=== PATIENT | female | born 1980 | race Caucasian/White ===

== ENCOUNTER 2025-08-16 12:34 | Outpatient (REF) | payer OTHER, BC, SELFPAY | END 2025-08-16 12:35 | disposition home or self-care (01) | LOC: HO.HPHYSR 12:34 | PROVIDERS: Visit Provider Physical Medicine & Rehabilitation | DX: M46.1 Sacroiliitis, not elsewhere classified (principal); M53.3 Sacrococcygeal disorders, not elsewhere classified | CPT/HCPCS: 27096; J2003; J3301; Q9967 ==

== ENCOUNTER 2025-08-16 12:34 | Outpatient (AMB) | payer OTHER, BC, SELFPAY ==
--- OUTSIDE RECORDS SUMMARY | 2025-04-03 05:04 | XMS_ITS ---
Author Organization [facility] Address [address] [place], [place] [id number] Care Team Providers Care Special Educator Name Role Phone DEBORAH TALBERT Primary Care Provider [phone] REASON FOR VISIT Migraines Encounters Encounter Location Date Provider Diagnosis [facility] [address] [place] [phone] 04/03/2025 DEBORAH TALBERT PLAN OF TREATMENT Next Appt Details Provider Name:DEBORAH Chavez, 07/24/2026 01:30:00 PM, [address] [place], [address],
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
--- OUTSIDE RECORDS SUMMARY | 2025-04-15 06:31 | XMS_ITS ---
Author Organization [facility] Address [address] [place], [place] [id number] Care Team Providers Care Forging Machine Hand Name Role Phone DEBORAH TALBERT Primary Care Provider REASON FOR VISIT Gabapentin f/u MEDICATIONS Medication SIG (Take, Route, Fr equency, Duration) Notes Start Date End Date Status Gabapentin 300 MG 2 Orally qhs prn for 30 day(s) 0 04/04/2025 Active Encounters Encounter Location Date Provider Diagnosis [facility] [address] [place] [phone] 04/15/2025 DEBORAH TLABERT Cervical radiculopat hy M54.12 ASSESSMENTS Encounter Date Diagnosis Assessment Notes Treatment Notes Treatment Clinical Notes Section Notes 04/15/2025 Cervical radiculopathy (ICD-10 - M54.12) PLAN OF TREATMENT Medication Medication Name Sig Start Date Stop Date Notes Gabapentin 300 MG 2 Orally qhs prn for 30 day(s) Next Appt Details Provider Name:DEBORAH Chavez, 07/24/2026 01:30:00 PM, [address] [place], [address],
--- OUTSIDE RECORDS SUMMARY | 2025-04-15 08:25 | XMS_ITS ---
Author Organization [facility] Address [address] [place], [place] [id number] Care Team Providers Care Ballet Dancer Name Role Phone DEBORAH TALBERT Primary Care Provider REASON FOR VISIT RE:Gabapentin f/u Encounters Encounter Location Date Provider Diagnosis [address] [address] 04/15/2025 DEBORAH TALBERT PLAN OF TREATMENT Next Appt Details Provider Name:DEBORAH Chavez, 07/24/2026 01:30:00 PM, [address] [place], [address],
--- OUTSIDE RECORDS SUMMARY | 2025-05-22 09:52 | XMS_ITS ---
Author Organization [facility] Address [address] [place], [place] [id number] Care Team Providers Care Airport Guide Name Role Phone DEBORAH TALBERT Primary Care Provider [phone] REASON FOR VISIT MedRecReq/Legal Encounters Encounter Location Date Provider Diagnosis [address] [address] 05/22/2025 DEBORAH TALBERT PLAN OF TREATMENT Next Appt Details Provider Name:DEBORAH Chavez, 07/24/2026 01:30:00 PM, [address] [place], [address],
--- OUTSIDE RECORDS SUMMARY | 2025-07-01 09:28 | XMS_ITS ---
Author Organization [facility] Address [address] [place], [place] [id number] Care Team Providers Care Tester Compressed Gases Name Role Phone DEBORAH TALBERT Primary Care Provider [phone] REASON FOR VISIT (w)question for Dr. Baca Encounters Encounter Location Date Provider Diagnosis [address] [address] 07/01/2025 DEBORAH TALBERT PLAN OF TREATMENT Next Appt Details Provider Name:DEBORAH Chavez, 07/24/2026 01:30:00 PM, [address] [place], [address],
--- OUTSIDE RECORDS SUMMARY | 2025-07-03 08:30 | XMS_ITS ---
Author Organization [facility] Address [address] [place], [place] [phone] Care Team Providers Care Facing Slitter Name Role Phone DEBORAH TALBERT Primary Care Provider [phone] RESULTS Component Value Reference Range Notes Sleep Study (Home) Reviewed date:08/09/2025 12:22:01 PM Interpretation: Performing Lab: Notes/Report: REASON FOR VISIT CPX MEDICATIONS Medication SIG (Take, Route, Frequency, Duration) Notes Start Date End Date Status Gabapentin 300 MG 2 Orally qhs prn for 30 day(s) 04/04/2025 Active buPROPion HCl ER (XL) 150 MG TAKE 3 TABLETS BY MOUTH ONCE DAILY for 90 Active Multivitamin - 1 tablet Orally Once a day for 30 days Active Citalopram Hydrobromide 20 MG 1 tablet Orally Once a day Active EpiPen 2-Curry 0.3 MG/0.3ML as directed Injection Active valACYclovir HCl 1 GM 2 Orally bid for 1 day prn 09/25 Active SOCIAL HISTORY Tobacco Use: Social History Observation Description Date Details (start date - stop date) Never Smoker NA - NA Sex Assigned At : Social History Observation Description Sex Assigned At Unknown Smoking Question Answer Notes Are you a: never smoker Section Notes: never smoker PROBLEMS Problem Type ICD Code Onset Dates Problem Status W/U Status Risk SNOMED Code Notes Problem NAUN (obstructive sleep apnea) (G47.33) Active confirmed 47996298 VITAL SIGNS Height 65.5 in 07/03/2025 Weight 169 lbs 07/03/2025 Blood pressure systolic 118 mm Hg 07/03/20 25 Blood pressure diastolic 78 mm Hg 025 BMI 27.69 kg/m2 07/03/2025 Encounters Encounter Location Date Provider Diagnosis [facility] [address] [place] [address] 07/03/2025 DEBORAH TALBERT Encounter for amber l adult medical examination without abnormal findings Z00.00 and NAUN (obstructive sleep apnea) G47.33 ASSESSMENTS Encounter Date Diagnosis Assessment Notes Treatment Notes Treatment Clinical Notes Section Notes 07/03/2025 Encounter for general adult medical examination without abnormal findings (ICD-10 - Z00.00) colon UTD..she does not smoke..flu shot today..diet and exercise and wt loss..mammos UTD..colon UTD 07/03/2025 NAUN (obstructive sleep apnea) (ICD-10 - G47.33) will check a home sleep study PLAN OF TREATMENT Treatment Notes Assessment Notes Encounter for general adult medical examination without abnormal findings colon UTD..she does not smoke..flu shot today..diet and exercise and wt loss..mammos UTD..colon UTD NAUN (obstructive sleep apnea) will check a home sleep study Next Appt Details Follow Up: 1 Year 45 min cpx ...labs today...flu shot today, Reason: Provider Name:DEBORAH Chavez, 07/24/2026 01:30:00 PM, [address] [place] [address], [phone], Progress Notes * Examination Category Sub-Category Detail Notes Category Not es General Examination HEENT: EACs normal bilaterally, nose clear, oropharynx clear Neck: no mass, no carotid bruit Heart: RSR, normal S1S2, no murmurs, clicks or rubs Lungs: clear to auscultatio n, no wheezes Abdomen: soft, non tender/non distended, no masses palpated, no hepatosplenomegaly Extremities: no clubbing , cyanos is, or edema General Appearance no apparent distress , pleasant Skin: normal, no rash, miri ign appearing moles Neuro DTRs 1-2+ in all 4 e xtremities, CN 2-12 intact Peripheral pulses: 2+, bilaterally syme trical Lymphatics No supraclavicular n odes, no cervical adenopathy Psych: affect normal History and Physical Notes * HPI (History of Present Illness) Category Sub-Category Detail Notes Category Not es General here for cpx
--- OUTSIDE RECORDS SUMMARY | 2025-07-03 09:06 | XMS_ITS ---
Author Organization [facility] Address [address] [place], [place] [phone] Care Team Providers Care Accelerator Systems Director Name Role Phone DEBORAH TALBERT Primary Care Provider [phone] REASON FOR VISIT home sleep study Encounters Encounter Location Date Provider Diagnosis [address] [address] 07/03/2025 DEBORAH TALBERT PLAN OF TREATMENT Next Appt Details Provider Name:DEBORAH Chavez, 07/24/2026 01:30:00 PM, [address] [place], [address],
--- OUTSIDE RECORDS SUMMARY | 2025-07-03 09:15 | XMS_ITS ---
Author Organization [facility] Address [address] [place], [place] [phone] Care Team Providers Care Umbrella Tipper Hand Name Role Phone DEBORAH TALBERT Primary Care Provider [place], [facility] Unavailable [phone] REASON FOR VISIT 27/flu shot IMMUNIZATIONS Vaccine Route Administration Date Status Comme nts Influenza, Flublok IM Intramuscular 07/03/2025 Administere d Encounters Encounter Location Date Provider Diagnosis [address] [address] 07/03/2025 N[facility]SING [place] Encounter for immunization Z23 ASSESSMENTS Encounter Date Diagnosis Assessment Notes Treatment Notes Treatment Clinical Notes Section Notes 07/03/2025 Encounter for immunization (ICD-10 - Z23) Influenza vaccine administered. Patient counseled and VIS sheet given. PLAN OF TREATMENT Treatment Notes Assessment Notes Encounter for immunization Influenza vac cine administered. Patient counseled and VIS sheet given. Next Appt Details Provider Name:DEBORAH Chavez, 07/24/2026 01:30:00 PM, [address] [place] [address], [phone],
--- OUTSIDE RECORDS SUMMARY | 2025-07-03 09:15 | XMS_ITS ---
Author Organization [facility] Address [address] [place], [place] [id number] Care Team Providers Care Jacquard Card Cutter Name Role Phone DEBORAH TALBERT Primary Care Provider [phone] REASON FOR VISIT employment Encounters Encounter Location Date Provider Diagnosis [facility] [address] [place] [phone] 07/03/2025 DEBORAH TALBERT PLAN OF TREATMENT Next Appt Details Provider Name:DEBORAH Chavez, 07/24/2026 01:30:00 PM, [address] [place], [address],
--- NOTE | 2025-08-16 12:42 | A.PHYSOV ---
Vital Signs 08/16/25 12:44 Height 5 ft 7 in Weight 168 lb BMI 26.3 BP 135/85 Pulse 86 Temp 98.4 F Intake Visit Reasons: Right Sacroiliac Joint Injection Intake Note: Patient is a 45 year old female in office today for a right sacroiliac joint injection. Allergies No Known Allergies Allergy (Verified 08/14/25 15:06) PFSH Medical History (Updated 08/16/25 @ 12:44 by Edis Dickerson DO) Sacroiliac inflammation Sacroiliac dysfunction Surgical History (Updated 08/16/25 @ 12:49 by Esther Cox MA) History of left hip replacement History of tonsillectomy (Unknown) History of hernia repair (Unknown) History of (Unknown) Social History (Updated 08/14/25 @ 15:12 by Esther Cox MA) Alcohol intake: current Alcohol intake frequency: holidays/special occasions only Patient Tobacco Use Status: Never used Tobacco Current occupational status: employed Current occupation: college or university department head Office Procedures AMB Sacroiliac Joint Injection AMB Sacroiliac Joint Injection Procedure Details: Procedure performed: Right sacroiliac joint injection Preop diagnosis: SI joint mediated pain, sacroiliitis Postop diagnosis: The same Anesthesia: Local After informed consent was obtained patient was brought into the procedure room and placed in prone position on the procedure table. Skin over lumbar sacral area was prepped and draped in the usual sterile manner. The inferior portion of the right sacroiliac joint was visualized utilizing fluoroscopy. 3.5 in 22 gauge spinal needle was introduced percutaneously and advanced into the joint. Needle placement was verified utilizing 0.5 cc of Omnipaque contrast solution. 2.5 cc of therapeutic solution containing 40 mg of triamcinolone and 2% lidocaine was injected after negative aspiration for blood. The C-arm was obliqued about 30? in the contralateral direction an area just medial the proximal portion of the sacroiliac joint was visualized. 3.5 in 22 gauge spinal needle was introduced percutaneously and advanced to enter the area. Once in place, needle placement was identified utilizing 1 cc of Omnipaque contrast solution. Total volume of 2.5 cc containing 40 mg of triamcinolone and 2% lidocaine was injected to block the lateral branches at the sacroiliac ligament. Radiation exposure was documented in the chart. Sacroiliac Joint Injections 58652 - use with FL Gd order: Right All charges added?: Procedure code (CPT) selection complete Office Meds Kenalog 40 mg/mL suspension for injection Performing Provider: Edis Dickerson DO Performing Location: [facility] Administered by: Edis Dickerson DO on 08/16/25 12:45 Dose Route Admin Location Dispensed Lot Number Expiration Date [facility] Instructor [employer] 80 mg intra-articular 2 mL [id number] [employer] Total Dispensed Waste 2 mL 0 % lidocaine (PF) 20 mg/mL (2 %) injection solution Performing Provider: Edis Dickerson DO Performing Location: [facility] Administered by: Edis Dickerson DO on 08/16/25 12:45 Dose Route Admin Location Dispensed Lot Number Expiration Date [facility] Instructor [employer] 120 mg intra-articular 10 mL [id number] [employer] Total Dispensed Waste 10 mL 40 % Omnipaque 300 300 mg iodine/mL intravenous solution Performing Provider: Edis Dickerson DO Performing Location: [facility] Administered by: Edis Dickerson DO on 08/16/25 12:45 Dose Route Admin Location Dispensed Lot Number Expiration Date [facility] Instructor [employer] 3 mL intra-articular 10 mL [id number] [employer] Total Dispensed Waste 10 mL 70 % Assessment & Plan Assessment & Plan (1) Sacroiliac dysfunction: Code(s): M53.3 - Sacrococcygeal disorders, not elsewhere classified Category: Medical Plan: Procedure (2) Sacroiliac inflammation: Code(s): M46.1 - Sacroiliitis, not elsewhere classified Category: Medical Plan: Procedure Plan Procedure Orders: Orders FL Guided Sacroiliac Jt Inj RT Today M46.1 - Sacroiliitis, not elsewhere classified, M53.3 - Sacrococcygeal disorders, not elsewhere classified AMB Sacroiliac Joint Injection Today M46.1 - Sacroiliitis, not elsewhere classified, M53.3 - Sacrococcygeal disorders, not elsewhere classified Coding Level of Care Code Procedure Only Diagnoses Sacroiliac dysfunction M53.3 Sacroiliac inflammation M46.1 CPT Codes AMB Sacroiliac Joint Injection - Hip intraarticular Injection - : Right ([id number])
[2025-08-16 12:44] VITALS: BP 135/85; PULSE 86; TEMP 36.9; BMI 26.3
--- OUTSIDE RECORDS SUMMARY | 2025-08-16 12:53 | XMS_ITS | Encounter Summary ---
Author Organization [facility] Address [address] [address] Phone Care Team Providers Care Reference Archivist Name Role Phone James Crowe MD Primary Care Provider Encounter Details Date Type Department Care Team (Late st Contact Info) Description 09/23/2017 Ancillary Orders [address] [address] Kaylee Abdalla MD [address] [place] [address] Orthopedics & Sports Medicine, [place] [address] [email or web address] Left hip pain Social History Tobacco Use Types Packs/Day Years Used Date Smoking Tobacco: Never Assessed Comments Unknown Sex and Gender Information Value Date Recorded Sex Assigned at Female 05/04/2022 11:51 AM EDT Legal Sex Female 10:30 PM EDT Gender Identity Female 05/04/2022 11:51 AM EDT Sexual Orientation Straight 05/04/2022 11 :51 AM EDT documented as of this encounter Plan of Treatment Not on file documented as of this encounter Visit Diagnoses Diagnosis Left hip pain Pain in joint, pelvic region and thigh documented in this encounter Care Teams Reference Archivist Relationship Specialty Start Date End Date James Crowe MD [address] [place] [address] [place] [address] PCP - General Internal Medicine 07/25/17 documented as of this encounter Additional Source Comments The information contained in this document represents components of the legal health record. It is not the complete legal health record.[facility]
--- OUTSIDE RECORDS SUMMARY | 2025-08-16 12:53 | XMS_ITS | Encounter Summary ---
Author Organization [facility] Address [address] [facility] [address] [place] [address] Phone Care Team Providers Care Transit Specialist Name Role Phone James Crowe MD Primary Care Provider Encounter Details Date Type Department Care Team (Late st Contact Info) Description 09/23/2017 Ancillary Orders [facility] Medicine [address] [place] [address] Kaylee Abdalla MD [address] [place] [address] Orthopedics & Sports Medicine, [facility] [place] [address] [email or web address] Social History Tobacco Use Types Packs/Day Years [...] documented as of this encounter Visit Diagnoses Not on filedocumented in this encounter Care Teams Transit Specialist Relationship Specialty Start Date End Date James Crowe MD [address] [place] [address] [place] [address] PCP - General Internal Medicine 07/25/17 documented as of this encounter Additional Source Comments The information contained in this document represents components of the legal health record. It is not the complete legal health record.[facility]
--- OUTSIDE RECORDS SUMMARY | 2025-08-16 12:53 | XMS_ITS | Clinical Summary ---
Author Organization [facility] Address [address] [address] Phone Care Team Providers Care Service Control Operator Name Role Phone James Crowe MD Primary Care Provider Allergies No known active allergies Medications citalopram (CELEXA) 40 MG tablet 1 tablet Active PROAIR HFA 90 mcg/actuation inhaler INHALE 2 PUFFS QID PRN 11 07/27/2017 Active LORazepam (ATIVAN) 1 MG tablet TK 1 T PO QHS PRN 2 07/05/2017 Active diclofenac sodium (VOLTAREN) 75 MG EC tablet Take 1 tablet (75 mg total) by mouth 2 (two) times a day. 60 tablet 1 12/07/2017 Active Active Problems Problem Noted Date Diagnosed Date Left hip pain 12/14/2017 Social History Tobacco Use Types Packs/Day Years Used Date Smoking Tobacco: Never Smokeless Tobacco: Never Alcohol Use Standard Drinks/Week Comments Yes 0 (1 standard drink = 0.6 oz pur e alcohol) Education Answer Date Recorded Are you interested in more education? Not on jose g e 01/21/2023 Are you concerned about learning? Not on file 01/21/2023 No 01/21/2023 No 01/21/2023 Digital Access Answer Date Recorded No 02/19/2023 No 02/19/2023 Reliable internet access at home? Not on file 02/19/2023 Device with a working camera? Not on file Comments Unknown Sex and Gender Information Value Date Recorded Sex Assigned at Female 05/04/2022 11:51 AM EDT Legal Sex Female 10:30 PM EDT Gender Identity Female 05/04/2022 11:51 AM EDT Sexual Orientation Straight 05/04/2022 11 :51 AM EDT Last Filed Vital Signs Vital Sign Reading Time Taken Comments Blood Pressure 122/75 03/31/2017 8:38 AM EDT Pulse 88 03/31/2017 8:38 AM EDT Temperature - - Respiratory Rate - - Oxygen Saturation - - Inhaled Oxygen Concentration - - Weight 79.4 kg (175 lb) 12/10/2018 10:25 AM EDT Height 170.2 cm (5' 7 ) 12/10/2018 10:25 AM EDT Body Mass Index 27.41 12/10/2018 10:25 AM EDT Plan of Treatment Health Maintenance Due Date Last Done Comments Adult Td,Tdap Booster 1978 LIPID PANEL 1978 DEPRESSION SCREENING 1990 HEPATITIS C SCREENING 1996 HIV ONE-TIME SCREENING (18-65 YEARS) 1996 PAP SMEAR 1999 MAMMOGRAM 2018 COLOGUARD 2023 COLONOSCOPY 2023 COLORECTAL CANCER SCREENING 2023 FIT TEST 2023 FOBT 2023 SIGMOIDOSCOPY 2023 VIRTUAL COLONOSCOPY 2023 INFLUENZA VACCINE (#1) 2025 COVID-19 VACCINE ( season) 2025 11/27/2020, 11/27/2020, 10/30/2020, Additional history exists SMOKING STATUS SCREENING (Once After 26 Yrs) Completed 12/19/2017 HEPATITIS A VACCINES Aged Out No long er eligible based on patient's age to complete this topic HIB VACCINES Aged Out No longer eligi ble based on patient's age to complete this topic MENINGOCOCCAL VACCINES (ACWY) Aged Out No longer eligible based on patient's age to complete this topic MENINGOCOCCAL VACCINES (B) Aged Out N o longer eligible based on patient's age to complete this topic PNEUMOCOCCAL VACCINES (0-49 years) Aged Out No longer eligible based on patient's age to complete this topic Medical Devices Not on file [facility] P[facility] EPO [facility] PPO EPO [facility] HMO Member Subscriber Plan / Payer (Ef fective 2017-Present) Name:Michael Reyes Relation to Subscriber:Self Name:Michael Reyes Payer ID:Not on file Type:[employer] Address: [address] EPO [facility] HMO [facility] PPO EPO [facility] PPO EPO [facility] HMO [facility] PPO EPO [facility] HMO [facility] PPO [facility]PO [facility] PPO [facility]PO [facility] HMO [place] EPO [employer] 40 Carriage CELESTINA Munson13 Care Teams Service Control Operator Relationship Specialty Start Date End Date James Crowe MD [address] [place] [address] PCP - General Internal Medicine 07/25/17 Additional Source Comments The information contained in this document represents components of the legal health record. It is not the complete legal health record.[facility]
--- OUTSIDE RECORDS SUMMARY | 2025-08-16 12:53 | XMS_ITS | Patient Health Record ---
Author Organization [employer] Address [address] [facility] [address] [place] [address] Care Team Providers Care Foil Wrapper Name Role Phone Unknown, Unknown Primary Care Provider Unavailab EDGAR Frazier Unavailable [phone] Allergies Allergen (clinical drug ingredient) Drug/Non Drug Allergy documented on EMR Reaction Allergy Type Onset Date Status topiramate Topamax hair loss Drug Allergy Active phentermine / topiramate Qsymia hair loss Drug Allergy Active Reason For Referral No Information Medications Medication SIG (Take, Route, Fr equency, Duration) Notes Start Date End Date Status Tranexamic Acid 650 MG as directed Orally Active CeleXA 20 MG 1 tablet Orally Once a day Active Gabapentin 300 MG 1 capsule Orally Once a day Active Naltrexone HCl 50 MG 1 tablet Orally Onc e a day; Duration: 30 days Active Daily Multi - 1 tablet Orally daily Active Biotin 51107 MCG 1 tablet Orally Once a day Active Wellbutrin XL 150 MG 1 tablet in the mor lorraine Orally three times a day Active Zepbound 2.5 MG/0.5ML 0.5 mL Subcutaneou s WEEKLY; Duration: 30 days Active Immunizations Vaccine Route Administration Date Status Comme nts COVID Unknown 10/30/2020 Administered moderna COVID Unknown 11/27/2020 Administered Moderna COVID Unknown 08/10/2021 Administered booster Social History Tobacco Use: Social History Observation Description Date Details (start date - stop date) Never Smoker NA - NA Tobacco Use/Smoking Question Answer Notes Are you a nonsmoker Alcohol Screen (Audit-C) Question Answer Notes Did you have a drink contain ing alcohol in the past year? Yes How often did you have a dri nk containing alcohol in the past year? 2 to 3 times a week (3 points) How many drinks did you have on a typical day when you were drinking in the past year? 1 or 2 drinks (0 point) Points 3 Interpretation Positive Problems Problem Type SNOMED Code ICD Code Onset Dates Problem Status W/U Status Risk Notes Problem Obesity due to excess calories (923151057) Other obesity due to excess calories (E66.09) Active confirmed Problem Moderate recurrent major depression (52801538) Major depressive disorder, recurrent, moderate (F33.1) Active confirmed Problem Generalized anxiety disorder (29704670) Generalized anxiety disorder (F41.1) Active confirmed Problem Alopecia (93636228) Nonscarring hair loss, unspecified (L65.9) Active confirmed Problem Obstructive sleep apnea (71932024) Obstructive sleep apnea (G47.33) Active confirmed Vital Signs Heart Rate 94 /min 08/16/2025 Temperature 97.3 degrees Fahrenheit 08/16/2025 Blood pressure diastolic 70 mm Hg 08/16/2025 Oximetry 96 % 08/16/2025 Height 66.26 in 08/16/2025 Blood pressure systolic 110 mm Hg 08/16/2025 Weight 168.5 lbs 08/16/2025 BMI 26.98 kg/m2 08/16/2025 Encounters Encounter Location Date Provider Diagnosis [address] [address] 08/28/2024 HERNÁNDEZ GUL [address] [place] [address] 12/20/2024 HERNÁNDEZ GUL Other obesity due to excess calories E66.09 ; Dietary counseling and surveillance Z71.3 ; Obstructive sleep apnea G47.33 and Pain in left hip M25.[address] [place] [address] 04/11/2025 HERNÁNDEZ GUL Other obesity due to excess calories E66.09 ; Dietary counseling and surveillance Z71.3 and Obstructive sleep apnea G47.[address] [place] [address] 05/23/2025 HERNÁNDEZ GUL Other obesity due to excess calories E66.09 ; Dietary counseling and surveillance Z71.3 and Obstructive sleep apnea G47.[address] [place] [address] 06/20/2025 HERNÁNDEZ GUL Other obesity due to excess calories E66.09 ; Dietary counseling and surveillance Z71.3 and Obstructive sleep apnea G47.33 [facility] [address] [place] [address] 07/18/2025 HERNÁNDEZ GUL Other obesity due to excess calories E66.09 ; Dietary counseling and surveillance Z71.3 and Obstructive sleep apnea G47.33 [facility] [address] [place] [address] 08/16/2025 HERNÁNDEZ GUL Other obesity due to excess calories E66.09 and Dietary counseling and surveillance Z71.3 [facility] [address] [place] [address] 08/28/2024 [facility] [address] [facility] [place] [address] 12/20/2024 [facility] [address] [facility] [place] [address] 03/25/2025 [facility] [address] [facility] [place] [address] 05/23/2025 [facility] [address] [facility] [place] [address] 06/19/2025 [facility] [address] [place] [address] 06/26/2025 [facility] [address] [place] [address] 07/18/2025 [facility] [address] [place] [address] 12/08/2024 Unknown Unknown [facility] [address] [place] [address] 12/16/2024 Unknown Unknown [facility] [address] [facility] [place] [address] 12/17/2024 Unknown Unknown [facility] [address] [place] [address] 01/01/2025 [facility] [address] [place] [address] 01/08/2025 Unknown Unknown [facility] [address] [facility] [address] 01/08/2025 Unknown Unknown [facility] [address] [place] [address] 01/09/2025 [facility] [address] [facility] [address] 01/15/2025 Unknown Unknown [facility] [address] [place] [address] 01/18/2025 Unknown Unknown [facility] [address] [facility] [facility] [address] 01/18/2025 [facility] [address] [place] [address] 03/18/2025 Unknown Unknown [facility] [address] [place] [address] 04/01/2025 Unknown Unknown [facility] [address] [place] [address] 04/02/2025 Unknown Unknown [facility] [address] [facility] [facility] [address] 04/16/2025 [facility] [address] [place] [address] 05/11/2025 Unknown Unknown [facility] [address] [facility] [facility] [address] 05/20/2025 Unknown Unknown Assessments Encounter Date Diagnosis (ICD Code) Assessment Notes Treatment Notes Treatment Clinical Notes Section Notes 12/20/2024 Other obesity due to excess calories (ICD-10 - E66.09) Mrs Reyes is a 43-year-old lady here today for follow up on medical weight management. We saw her after a few months. She was 194 pounds and she dropped down to 143 pounds but now she is slowly gaining weight. Plan is as follows: Obstructive sleep apnea. She has obstructive sleep apnea but she cannot tolerate CPAP machine. Dietary recommendations. Food recall was done today and patient advised to be on low calorie, low carbohydrate diet. Restrict calories to less than 1500 kcal in 24 hours. Low glycemic index foods and encouraged. Meal replacements were recommended. Advised to use mnhg-fqw-eahsybp multivitamins and vitamin D. Advised to use calorie counter and adhere to portion control. Monthly goal is to lose 4-6 pounds Pharmacotherapy. She has lost weight in the past as mentioned above. Has tried Qsymia, Contrave and phentermine. She has sleep apnea. We started her on Zepbound 2.5 mg every weekly which will help her lose weight and decrease her risk of coronary artery disease and other comorbidities. Goal is to lose 3-5% of body weight in 3 months. Exercise. Patient encouraged to increase frequency, intensity and duration of exercise. Encouraged to burn at least 250-500 kcal in one session. Also encouraged to do weight training Assess. Different risk factors discussed with the patient and addressed Advise. Patient was given clear And specific advise that she will comply with Low-calorie diet and try not to exceed more than 1300 kcal in 24 hours. Agree. Mutually agreed to work together to achieve appropriate goals Assist. Motivational interviewing done. Arrange. Follow-up appointment arranged. Counseling. 20 minutes spent Face to face with the patient more than 50% of time was spent counseling General health concerns discussed with patient. 12/20/2024 Dietary counseling and surveillance (ICD-10 - Z71.3) Mrs Reyes is a 43-year-old lady here today for follow up on medical weight management. We saw her after a few months. She was 194 pounds and she dropped down to 143 pounds but now she is slowly gaining weight. Plan is as follows: Obstructive sleep apnea. She has obstructive sleep apnea but she cannot tolerate CPAP machine. Dietary recommendations. Food recall was done today and patient advised to be on low calorie, low carbohydrate diet. Restrict calories to less than 1500 kcal in 24 hours. Low glycemic index foods and encouraged. Meal replacements were recommended. Advised to use ljnd-fdw-oqsvrbi multivitamins and vitamin D. Advised to use calorie counter and adhere to portion control. Monthly goal is to lose 4-6 pounds Pharmacotherapy. She has lost weight in the past as mentioned above. Has tried Qsymia, Contrave and phentermine. She has sleep apnea. We started her on Zepbound 2.5 mg every weekly which will help her lose weight and decrease her risk of coronary artery disease and other comorbidities. Goal is to lose 3-5% of body weight in 3 months. Exercise. Patient encouraged to increase frequency, intensity and duration of exercise. Encouraged to burn at least 250-500 kcal in one session. Also encouraged to do weight training Assess. Different risk factors discussed with the patient and addressed Advise. Patient was given clear And specific advise that she will comply with Low-calorie diet and try not to exceed more than 1300 kcal in 24 hours. Agree. Mutually agreed to work together to achieve appropriate goals Assist. Motivational interviewing done. Arrange. Follow-up appointment arranged. Counseling. 20 minutes spent Face to face with the patient more than 50% of time was spent counseling General health concerns discussed with patient. 04/11/2025 Other obesity due to excess calories (ICD-10 - E66.09) Mrs Reyes is a 43-year-old lady here today for follow up on medical weight management. We saw her after a few months. She was 194 pounds and she dropped down to 143 pounds but now she is slowly gaining weight. Plan is as follows: Obstructive sleep apnea. She has obstructive sleep apnea but she cannot tolerate CPAP machine. Dietary recommendations. Food recall was done today and patient advised to be on low calorie, low carbohydrate diet. Restrict calories to less than 1500 kcal in 24 hours. Low glycemic index foods and encouraged. Meal replacements were recommended. Advised to use vbzs-zav-wqpcwel multivitamins and vitamin D. Advised to use calorie counter and adhere to portion control. Monthly goal is to lose 4-6 pounds Pharmacotherapy. She we will continue on Wellbutrin, naltrexone and we will increase phentermine to 30 mg daily. Goal is to lose 3-5% of body weight in 3 months. Exercise. Patient encouraged to increase frequency, intensity and duration of exercise. Encouraged to burn at least 250-500 kcal in one session. Also encouraged to do weight training Assess. Different risk factors discussed with the patient and addressed Advise. Patient was given clear And specific advise that she will comply with Low-calorie diet and try not to exceed more than 1300 kcal in 24 hours. Agree. Mutually agreed to work together to achieve appropriate goals Assist. Motivational interviewing done. Arrange. Follow-up appointment arranged. Counseling. 20 minutes spent Face to face with the patient more than 50% of time was spent counseling General health concerns discussed with patient. 04/11/2025 Dietary counseling and surveillance (ICD-10 - Z71.3) Mrs Reyes is a 43-year-old lady here today for follow up on medical weight management. We saw her after a few months. She was 194 pounds and she dropped down to 143 pounds but now she is slowly gaining weight. Plan is as follows: Obstructive sleep apnea. She has obstructive sleep apnea but she cannot tolerate CPAP machine. Dietary recommendations. Food recall was done today and patient advised to be on low calorie, low carbohydrate diet. Restrict calories to less than 1500 kcal in 24 hours. Low glycemic index foods and encouraged. Meal replacements were recommended. Advised to use fpua-cuf-qunzkor multivitamins and vitamin D. Advised to use calorie counter and adhere to portion control. Monthly goal is to lose 4-6 pounds Pharmacotherapy. She we will continue on Wellbutrin, naltrexone and we will increase phentermine to 30 mg daily. Goal is to lose 3-5% of body weight in 3 months. Exercise. Patient encouraged to increase frequency, intensity and duration of exercise. Encouraged to burn at least 250-500 kcal in one session. Also encouraged to do weight training Assess. Different risk factors discussed with the patient and addressed Advise. Patient was given clear And specific advise that she will comply with Low-calorie diet and try not to exceed more than 1300 kcal in 24 hours. Agree. Mutually agreed to work together to achieve appropriate goals Assist. Motivational interviewing done. Arrange. Follow-up appointment arranged. Counseling. 20 minutes spent Face to face with the patient more than 50% of time was spent counseling General health concerns discussed with patient. 05/23/2025 Other obesity due to excess calories (ICD-10 - E66.09) Mrs Reyes is a 43-year-old lady here today for follow up on medical weight management. She has gained weight and it is mostly calorie weight and she is not exercising. She is working long hours. She is approved for [employer] with a clause that she has to do dietary and lifestyle modifications were at least 3 months. We also discussed if she can afford to pay out of pocket from [employer]. She is currently on phentermine which is not helping. Plan is as follows: Obstructive sleep apnea. She has obstructive sleep apnea but she cannot tolerate CPAP machine. Dietary recommendations. Food recall was done today and patient advised to be on low calorie, low carbohydrate diet. Restrict calories to less than 1500 kcal in 24 hours. Low glycemic index foods and encouraged. Meal replacements were recommended. Advised to use rhlp-gbg-vpovfbk multivitamins and vitamin D. Advised to use calorie counter and adhere to portion control. Monthly goal is to lose 4-6 pounds Pharmacotherapy. She we will continue on Wellbutrin, naltrexone and we will stop phentermine to 30 mg daily and she is given sample of Ozempic 0.25 every weekly and side effects of the medication explained. Goal is to lose 3-5% of body weight in 3 months. Exercise. Patient encouraged to increase frequency, intensity and duration of exercise. Encouraged to burn at least 250-500 kcal in one session. Also encouraged to do weight training Assess. Different risk factors discussed with the patient and addressed Advise. Patient was given clear And specific advise that she will comply with Low-calorie diet and try not to exceed more than 1300 kcal in 24 hours. Agree. Mutually agreed to work together to achieve appropriate goals Assist. Motivational interviewing done. Arrange. Follow-up appointment arranged. Counseling. 15 minutes spent Face to face with the patient more than 50% of time was spent counseling General health concerns discussed with patient. 05/23/2025 Dietary counseling and surveillance (ICD-10 - Z71.3) Mrs Reyes is a 43-year-old lady here today for follow up on medical weight management. She has gained weight and it is mostly calorie weight and she is not exercising. She is working long hours. She is approved for [employer] with a clause that she has to do dietary and lifestyle modifications were at least 3 months. We also discussed if she can afford to pay out of pocket from [employer]. She is currently on phentermine which is not helping. Plan is as follows: Obstructive sleep apnea. She has obstructive sleep apnea but she cannot tolerate CPAP machine. Dietary recommendations. Food recall was done today and patient advised to be on low calorie, low carbohydrate diet. Restrict calories to less than 1500 kcal in 24 hours. Low glycemic index foods and encouraged. Meal replacements were recommended. Advised to use nvvl-hss-vtcvhem multivitamins and vitamin D. Advised to use calorie counter and adhere to portion control. Monthly goal is to lose 4-6 pounds Pharmacotherapy. She we will continue on Wellbutrin, naltrexone and we will stop phentermine to 30 mg daily and she is given sample of Ozempic 0.25 every weekly and side effects of the medication explained. Goal is to lose 3-5% of body weight in 3 months. Exercise. Patient encouraged to increase frequency, intensity and duration of exercise. Encouraged to burn at least 250-500 kcal in one session. Also encouraged to do weight training Assess. Different risk factors discussed with the patient and addressed Advise. Patient was given clear And specific advise that she will comply with Low-calorie diet and try not to exceed more than 1300 kcal in 24 hours. Agree. Mutually agreed to work together to achieve appropriate goals Assist. Motivational interviewing done. Arrange. Follow-up appointment arranged. Counseling. 15 minutes spent Face to face with the patient more than 50% of time was spent counseling General health concerns discussed with patient. 06/20/2025 Other obesity due to excess calories (ICD-10 - E66.09) Mrs Reyes is a 43-year-old lady here today for follow up on medical weight management. She has gained weight and it is mostly calorie weight and she is not exercising. She is working long hours. She is approved for [employer] with a clause that she has to do dietary and lifestyle modifications were at least 3 months. We also discussed if she can afford to pay out of pocket from [employer]. She is currently on phentermine which is not helping. Plan is as follows: Obstructive sleep apnea. She has obstructive sleep apnea in the past and she did use CPAP machine for some time. She has appointment with her primary care physician next month and we suggested that she has sleep study for further evaluation Dietary recommendations. Food recall was done today and patient advised to be on low calorie, low carbohydrate diet. Restrict calories to less than 1500 kcal in 24 hours. Low glycemic index foods and encouraged. Meal replacements were recommended. Advised to use euyh-bic-ucdpjgm multivitamins and vitamin D. Advised to use calorie counter and adhere to portion control. Monthly goal is to lose 4-6 pounds Pharmacotherapy. She we will continue on Wellbutrin, naltrexone and we will stop phentermine to 30 mg daily and she is given sample of Ozempic 0.25 every weekly and side effects of the medication explained. Goal is to lose 3-5% of body weight in 3 months. Exercise. Patient encouraged to increase frequency, intensity and duration of exercise. Encouraged to burn at least 250-500 kcal in one session. Also encouraged to do weight training Assess. Different risk factors discussed with the patient and addressed Advise. Patient was given clear And specific advise that she will comply with Low-calorie diet and try not to exceed more than 1300 kcal in 24 hours. Agree. Mutually agreed to work together to achieve appropriate goals Assist. Motivational interviewing done. Arrange. Follow-up appointment arranged. Counseling. 15 minutes spent Face to face with the patient more than 50% of time was spent counseling General health concerns discussed with patient. 06/20/2025 Dietary counseling and surveillance (ICD-10 - Z71.3) Mrs Reyes is a 43-year-old lady here today for follow up on medical weight management. She has gained weight and it is mostly calorie weight and she is not exercising. She is working long hours. She is approved for [employer] with a clause that she has to do dietary and lifestyle modifications were at least 3 months. We also discussed if she can afford to pay out of pocket from [employer]. She is currently on phentermine which is not helping. Plan is as follows: Obstructive sleep apnea. She has obstructive sleep apnea in the past and she did use CPAP machine for some time. She has appointment with her primary care physician next month and we suggested that she has sleep study for further evaluation Dietary recommendations. Food recall was done today and patient advised to be on low calorie, low carbohydrate diet. Restrict calories to less than 1500 kcal in 24 hours. Low glycemic index foods and encouraged. Meal replacements were recommended. Advised to use wluw-gph-vutehfq multivitamins and vitamin D. Advised to use calorie counter and adhere to portion control. Monthly goal is to lose 4-6 pounds Pharmacotherapy. She we will continue on Wellbutrin, naltrexone and we will stop phentermine to 30 mg daily and she is given sample of Ozempic 0.25 every weekly and side effects of the medication explained. Goal is to lose 3-5% of body weight in 3 months. Exercise. Patient encouraged to increase frequency, intensity and duration of exercise. Encouraged to burn at least 250-500 kcal in one session. Also encouraged to do weight training Assess. Different risk factors discussed with the patient and addressed Advise. Patient was given clear And specific advise that she will comply with Low-calorie diet and try not to exceed more than 1300 kcal in 24 hours. Agree. Mutually agreed to work together to achieve appropriate goals Assist. Motivational interviewing done. Arrange. Follow-up appointment arranged. Counseling. 15 minutes spent Face to face with the patient more than 50% of time was spent counseling General health concerns discussed with patient. 07/18/2025 Other obesity due to excess calories (ICD-10 - E66.09) Mrs Reyes is a 43-year-old lady here today for follow up on medical weight management. She lost 4.6 pounds since her last visit. She was given sample of Ozempic 0.25 mg every weekly. She is approved for Zepbound 2.5 mg weekly. She is going to have her sleep study and of this month.Plan is as follows: Obstructive sleep apnea. She has obstructive sleep apnea in the past and she did use CPAP machine for some time. She has sleep study end of this month Dietary recommendations. Food recall was done today and patient advised to be on low calorie, low carbohydrate diet. Restrict calories to less than 1500 kcal in 24 hours. Low glycemic index foods and encouraged. Meal replacements were recommended. Advised to use fhya-fix-rorebcm multivitamins and vitamin D. Advised to use calorie counter and adhere to portion control. Monthly goal is to lose 4-6 pounds Pharmacotherapy. She we will continue on Wellbutrin, naltrexone and we will stop phentermine to 30 mg daily and she is given sample of Ozempic 0.25 every weekly on her last visit. She is approved for Zepbound 2.5 mg weekly and prescription sent and will titrate up as needed and side effects of the medication explained. Goal is to lose 3-5% of body weight in 3 months. Exercise. Patient encouraged to increase frequency, intensity and duration of exercise. Encouraged to burn at least 250-500 kcal in one session. Also encouraged to do weight training Assess. Different risk factors discussed with the patient and addressed Advise. Patient was given clear And specific advise that she will comply with Low-calorie diet and try not to exceed more than 1300 kcal in 24 hours. Agree. Mutually agreed to work together to achieve appropriate goals Assist. Motivational interviewing done. Arrange. Follow-up appointment arranged. Counseling. 15 minutes spent Face to face with the patient more than 50% of time was spent counseling General health concerns discussed with patient. 07/18/2025 Dietary counseling and surveillance (ICD-10 - Z71.3) Mrs Reyes is a 43-year-old lady here today for follow up on medical weight management. She lost 4.6 pounds since her last visit. She was given sample of Ozempic 0.25 mg every weekly. She is approved for Zepbound 2.5 mg weekly. She is going to have her sleep study and of this month.Plan is as follows: Obstructive sleep apnea. She has obstructive sleep apnea in the past and she did use CPAP machine for some time. She has sleep study end of this month Dietary recommendations. Food recall was done today and patient advised to be on low calorie, low carbohydrate diet. Restrict calories to less than 1500 kcal in 24 hours. Low glycemic index foods and encouraged. Meal replacements were recommended. Advised to use bqob-pzu-hrywivt multivitamins and vitamin D. Advised to use calorie counter and adhere to portion control. Monthly goal is to lose 4-6 pounds Pharmacotherapy. She we will continue on Wellbutrin, naltrexone and we will stop phentermine to 30 mg daily and she is given sample of Ozempic 0.25 every weekly on her last visit. She is approved for Zepbound 2.5 mg weekly and prescription sent and will titrate up as needed and side effects of the medication explained. Goal is to lose 3-5% of body weight in 3 months. Exercise. Patient encouraged to increase frequency, intensity and duration of exercise. Encouraged to burn at least 250-500 kcal in one session. Also encouraged to do weight training Assess. Different risk factors discussed with the patient and addressed Advise. Patient was given clear And specific advise that she will comply with Low-calorie diet and try not to exceed more than 1300 kcal in 24 hours. Agree. Mutually agreed to work together to achieve appropriate goals Assist. Motivational interviewing done. Arrange. Follow-up appointment arranged. Counseling. 15 minutes spent Face to face with the patient more than 50% of time was spent counseling General health concerns discussed with patient. 08/16/2025 Other obesity due to excess calories (ICD-10 - E66.09) Mrs Reyes is a 43-year-old lady here today for follow up on medical weight management. She lost roughly 1 pounds since her last visit. She had 3 injections of Zepbound 2.5 mg weekly. She is going to have her sleep study and of this month.Plan is as follows: Dietary recommendations. Food recall was done today and patient advised to be on low calorie, low carbohydrate diet. Restrict calories to less than 1500 kcal in 24 hours. Low glycemic index foods and encouraged. Meal replacements were recommended. Advised to use hczt-zlk-yggdspz multivitamins and vitamin D. Advised to use calorie counter and adhere to portion control. Monthly goal is to lose 4-6 pounds Pharmacotherapy. She will continue Zepbound 2.5 mg weekly until next appointment because she just started and prescription sent and will titrate up as needed and side effects of the medication explained. Goal is to lose 3-5% of body weight in 3 months. Exercise. Patient encouraged to increase frequency, intensity and duration of exercise. Encouraged to burn at least 250-500 kcal in one session. Also encouraged to do weight training Assess. Different risk factors discussed with the patient and addressed Advise. Patient was given clear And specific advise that she will comply with Low-calorie diet and try not to exceed more than 1300 kcal in 24 hours. Agree. Mutually agreed to work together to achieve appropriate goals Assist. Motivational interviewing done. Arrange. Follow-up appointment arranged. Counseling. 15 minutes spent Face to face with the patient more than 50% of time was spent counseling General health concerns discussed with patient. 08/16/2025 Dietary counseling and surveillance (ICD-10 - Z71.3) Mrs Reyes is a 43-year-old lady here today for follow up on medical weight management. She lost roughly 1 pounds since her last visit. She had 3 injections of Zepbound 2.5 mg weekly. She is going to have her sleep study and of this month.Plan is as follows: Dietary recommendations. Food recall was done today and patient advised to be on low calorie, low carbohydrate diet. Restrict calories to less than 1500 kcal in 24 hours. Low glycemic index foods and encouraged. Meal replacements were recommended. Advised to use ppie-btt-bzvzeph multivitamins and vitamin D. Advised to use calorie counter and adhere to portion control. Monthly goal is to lose 4-6 pounds Pharmacotherapy. She will continue Zepbound 2.5 mg weekly until next appointment because she just started and prescription sent and will titrate up as needed and side effects of the medication explained. Goal is to lose 3-5% of body weight in 3 months. Exercise. Patient encouraged to increase frequency, intensity and duration of exercise. Encouraged to burn at least 250-500 kcal in one session. Also encouraged to do weight training Assess. Different risk factors discussed with the patient and addressed Advise. Patient was given clear And specific advise that she will comply with Low-calorie diet and try not to exceed more than 1300 kcal in 24 hours. Agree. Mutually agreed to work together to achieve appropriate goals Assist. Motivational interviewing done. Arrange. Follow-up appointment arranged. Counseling. 15 minutes spent Face to face with the patient more than 50% of time was spent counseling General health concerns discussed with patient. 07/18/2025 Obstructive sleep apnea (ICD-10 - G47.33) Mrs Reyes is a 43-year-old lady here today for follow up on medical weight management. She lost 4.6 pounds since her last visit. She was given sample of Ozempic 0.25 mg every weekly. She is approved for Zepbound 2.5 mg weekly. She is going to have her sleep study and of this month.Plan is as follows: Obstructive sleep apnea. She has obstructive sleep apnea in the past and she did use CPAP machine for some time. She has sleep study end of this month Dietary recommendations. Food recall was done today and patient advised to be on low calorie, low carbohydrate diet. Restrict calories to less than 1500 kcal in 24 hours. Low glycemic index foods and encouraged. Meal replacements were recommended. Advised to use xtwm-fvq-zklbcid multivitamins and vitamin D. Advised to use calorie counter and adhere to portion control. Monthly goal is to lose 4-6 pounds Pharmacotherapy. She we will continue on Wellbutrin, naltrexone and we will stop phentermine to 30 mg daily and she is given sample of Ozempic 0.25 every weekly on her last visit. She is approved for Zepbound 2.5 mg weekly and prescription sent and will titrate up as needed and side effects of the medication explained. Goal is to lose 3-5% of body weight in 3 months. Exercise. Patient encouraged to increase frequency, intensity and duration of exercise. Encouraged to burn at least 250-500 kcal in one session. Also encouraged to do weight training Assess. Different risk factors discussed with the patient and addressed Advise. Patient was given clear And specific advise that she will comply with Low-calorie diet and try not to exceed more than 1300 kcal in 24 hours. Agree. Mutually agreed to work together to achieve appropriate goals Assist. Motivational interviewing done. Arrange. Follow-up appointment arranged. Counseling. 15 minutes spent Face to face with the patient more than 50% of time was spent counseling General health concerns discussed with patient. 06/20/2025 Obstructive sleep apnea (ICD-10 - G47.33) Mrs Reyes is a 43-year-old lady here today for follow up on medical weight management. She has gained weight and it is mostly calorie weight and she is not exercising. She is working long hours. She is approved for [employer] with a clause that she has to do dietary and lifestyle modifications were at least 3 months. We also discussed if she can afford to pay out of pocket from [employer]. She is currently on phentermine which is not helping. Plan is as follows: Obstructive sleep apnea. She has obstructive sleep apnea in the past and she did use CPAP machine for some time. She has appointment with her primary care physician next month and we suggested that she has sleep study for further evaluation Dietary recommendations. Food recall was done today and patient advised to be on low calorie, low carbohydrate diet. Restrict calories to less than 1500 kcal in 24 hours. Low glycemic index foods and encouraged. Meal replacements were recommended. Advised to use cklv-vsp-qafzosj multivitamins and vitamin D. Advised to use calorie counter and adhere to portion control. Monthly goal is to lose 4-6 pounds Pharmacotherapy. She we will continue on Wellbutrin, naltrexone and we will stop phentermine to 30 mg daily and she is given sample of Ozempic 0.25 every weekly and side effects of the medication explained. Goal is to lose 3-5% of body weight in 3 months. Exercise. Patient encouraged to increase frequency, intensity and duration of exercise. Encouraged to burn at least 250-500 kcal in one session. Also encouraged to do weight training Assess. Different risk factors discussed with the patient and addressed Advise. Patient was given clear And specific advise that she will comply with Low-calorie diet and try not to exceed more than 1300 kcal in 24 hours. Agree. Mutually agreed to work together to achieve appropriate goals Assist. Motivational interviewing done. Arrange. Follow-up appointment arranged. Counseling. 15 minutes spent Face to face with the patient more than 50% of time was spent counseling General health concerns discussed with patient. 05/23/2025 Obstructive sleep apnea (ICD-10 - G47.33) Mrs Reyes is a 43-year-old lady here today for follow up on medical weight management. She has gained weight and it is mostly calorie weight and she is not exercising. She is working long hours. She is approved for [employer] with a clause that she has to do dietary and lifestyle modifications were at least 3 months. We also discussed if she can afford to pay out of pocket from [employer]. She is currently on phentermine which is not helping. Plan is as follows: Obstructive sleep apnea. She has obstructive sleep apnea but she cannot tolerate CPAP machine. Dietary recommendations. Food recall was done today and patient advised to be on low calorie, low carbohydrate diet. Restrict calories to less than 1500 kcal in 24 hours. Low glycemic index foods and encouraged. Meal replacements were recommended. Advised to use uzej-pht-fgravln multivitamins and vitamin D. Advised to use calorie counter and adhere to portion control. Monthly goal is to lose 4-6 pounds Pharmacotherapy. She we will continue on Wellbutrin, naltrexone and we will stop phentermine to 30 mg daily and she is given sample of Ozempic 0.25 every weekly and side effects of the medication explained. Goal is to lose 3-5% of body weight in 3 months. Exercise. Patient encouraged to increase frequency, intensity and duration of exercise. Encouraged to burn at least 250-500 kcal in one session. Also encouraged to do weight training Assess. Different risk factors discussed with the patient and addressed Advise. Patient was given clear And specific advise that she will comply with Low-calorie diet and try not to exceed more than 1300 kcal in 24 hours. Agree. Mutually agreed to work together to achieve appropriate goals Assist. Motivational interviewing done. Arrange. Follow-up appointment arranged. Counseling. 15 minutes spent Face to face with the patient more than 50% of time was spent counseling General health concerns discussed with patient. 04/11/2025 Obstructive sleep apnea (ICD-10 - G47.33) Mrs Reyes is a 43-year-old lady here today for follow up on medical weight management. We saw her after a few months. She was 194 pounds and she dropped down to 143 pounds but now she is slowly gaining weight. Plan is as follows: Obstructive sleep apnea. She has obstructive sleep apnea but she cannot tolerate CPAP machine. Dietary recommendations. Food recall was done today and patient advised to be on low calorie, low carbohydrate diet. Restrict calories to less than 1500 kcal in 24 hours. Low glycemic index foods and encouraged. Meal replacements were recommended. Advised to use tgym-mqh-lfsgasb multivitamins and vitamin D. Advised to use calorie counter and adhere to portion control. Monthly goal is to lose 4-6 pounds Pharmacotherapy. She we will continue on Wellbutrin, naltrexone and we will increase phentermine to 30 mg daily. Goal is to lose 3-5% of body weight in 3 months. Exercise. Patient encouraged to increase frequency, intensity and duration of exercise. Encouraged to burn at least 250-500 kcal in one session. Also encouraged to do weight training Assess. Different risk factors discussed with the patient and addressed Advise. Patient was given clear And specific advise that she will comply with Low-calorie diet and try not to exceed more than 1300 kcal in 24 hours. Agree. Mutually agreed to work together to achieve appropriate goals Assist. Motivational interviewing done. Arrange. Follow-up appointment arranged. Counseling. 20 minutes spent Face to face with the patient more than 50% of time was spent counseling General health concerns discussed with patient. 12/20/2024 Obstructive sleep apnea (ICD-10 - G47.33) Mrs Reyes is a 43-year-old lady here today for follow up on medical weight management. We saw her after a few months. She was 194 pounds and she dropped down to 143 pounds but now she is slowly gaining weight. Plan is as follows: Obstructive sleep apnea. She has obstructive sleep apnea but she cannot tolerate CPAP machine. Dietary recommendations. Food recall was done today and patient advised to be on low calorie, low carbohydrate diet. Restrict calories to less than 1500 kcal in 24 hours. Low glycemic index foods and encouraged. Meal replacements were recommended. Advised to use ysab-ukl-eirlamc multivitamins and vitamin D. Advised to use calorie counter and adhere to portion control. Monthly goal is to lose 4-6 pounds Pharmacotherapy. She has lost weight in the past as mentioned above. Has tried Qsymia, Contrave and phentermine. She has sleep apnea. We started her on Zepbound 2.5 mg every weekly which will help her lose weight and decrease her risk of coronary artery disease and other comorbidities. Goal is to lose 3-5% of body weight in 3 months. Exercise. Patient encouraged to increase frequency, intensity and duration of exercise. Encouraged to burn at least 250-500 kcal in one session. Also encouraged to do weight training Assess. Different risk factors discussed with the patient and addressed Advise. Patient was given clear And specific advise that she will comply with Low-calorie diet and try not to exceed more than 1300 kcal in 24 hours. Agree. Mutually agreed to work together to achieve appropriate goals Assist. Motivational interviewing done. Arrange. Follow-up appointment arranged. Counseling. 20 minutes spent Face to face with the patient more than 50% of time was spent counseling General health concerns discussed with patient. 12/20/2024 Pain in left hip (ICD-10 - M25.552) Mrs Reyes is a 43-year-old lady here today for follow up on medical weight management. We saw her after a few months. She was 194 pounds and she dropped down to 143 pounds but now she is slowly gaining weight. Plan is as follows: Obstructive sleep apnea. She has obstructive sleep apnea but she cannot tolerate CPAP machine. Dietary recommendations. Food recall was done today and patient advised to be on low calorie, low carbohydrate diet. Restrict calories to less than 1500 kcal in 24 hours. Low glycemic index foods and encouraged. Meal replacements were recommended. Advised to use zbkv-kfp-ykhtmcl multivitamins and vitamin D. Advised to use calorie counter and adhere to portion control. Monthly goal is to lose 4-6 pounds Pharmacotherapy. She has lost weight in the past as mentioned above. Has tried Qsymia, Contrave and phentermine. She has sleep apnea. We started her on Zepbound 2.5 mg every weekly which will help her lose weight and decrease her risk of coronary artery disease and other comorbidities. Goal is to lose 3-5% of body weight in 3 months. Exercise. Patient encouraged to increase frequency, intensity and duration of exercise. Encouraged to burn at least 250-500 kcal in one session. Also encouraged to do weight training Assess. Different risk factors discussed with the patient and addressed Advise. Patient was given clear And specific advise that she will comply with Low-calorie diet and try not to exceed more than 1300 kcal in 24 hours. Agree. Mutually agreed to work together to achieve appropriate goals Assist. Motivational interviewing done. Arrange. Follow-up appointment arranged. Counseling. 20 minutes spent Face to face with the patient more than 50% of time was spent counseling General health concerns discussed with patient. Plan Of Treatment Next Appt Details Provider Name:EDGAR TORRES , 09/23/2025 10:45:00 AM, [address] [place] [address], [phone], Insurance Providers Payer Name Payer Address Payer Phone Subscriber Number Group Number Insured Name Patient Relationship to Insured Coverage Start Date Coverage End Date [facility] [address] [place] [phone] [id number] Mindi Reyes Self - patient is the insured 3 [facility] [address] [place] [phone] [id number] Mindi Reyes Self - patient is the insured 3 Medical (General) History Medical History History ICD Code Major depression mild Class I obesity Surgical History Surgery Date(Month/Year) left hip surgery lumpectomy, right breast Hospitalization History Reason Date(Month/Year)
--- OUTSIDE RECORDS SUMMARY | 2025-08-16 12:54 | XMS_ITS ---
[facility] Name [facility] Organization Unknown Care Team Organization Name Specialty Phone Email Start Date End Da tristin [facility] Brenda Martinez Primary Care 08/03/2022 024
--- OUTSIDE RECORDS SUMMARY | 2025-08-16 12:54 | XMS_ITS | Encounter Summary ---
Author Organization [facility] Address [address] [facility] [address] [place] [phone] Phone Care Team Providers Care Therapeutic Recreation Leader Name Role Phone James Crowe MD Primary Care Provider Encounter Details Date Type Department Care Team (Late st Contact Info) Description 11/11/2017 Procedure Pass [facility], [address] [address] Social History Tobacco Use Types Packs/Day Years Used Date Smoking Tobacco: Never Smokeless Tobacco: Never Alcohol Use Standard Drinks/Week Comments Yes 0 (1 standard drink = 0.6 oz pur e alcohol) Comments Unknown Sex and Gender Information Value [...] on filedocumented in this encounter Care Teams Therapeutic Recreation Leader Relationship Specialty Start Date End Date James Crowe MD [address] [place] [phone] PCP - General Internal Medicine 07/25/17 documented as of this encounter Additional Source Comments The information contained in this document represents components of the legal health record. It is not the complete legal health record.[facility]
--- OUTSIDE RECORDS SUMMARY | 2025-08-16 12:54 | XMS_ITS | Encounter Summary ---
Author Organization [facility] Address [address] [facility] [address] [place] [phone] Phone Care Team Providers Care Microstrategy Bi Developer Name Role Phone James Crowe MD Primary Care Provider Encounter Details Date Type Department Care Team (Late st Contact Info) Description 10/17/2017 Ancillary Orders [facility] Medical [facility] Orthopedics & Sports Medicine [address] [place] [phone] Kaylee Abdalla MD [address] [place] [address] Orthopedics & Sports Medicine, [facility] [place] [address] [email or web address] Social History Tobacco Use Types Packs/Day Years [...] on filedocumented in this encounter Care Teams Microstrategy Bi Developer Relationship Specialty Start Date End Date James Crowe MD [address] [place] [address] [place] [address] PCP - General Internal Medicine 07/25/17 documented as of this encounter Additional Source Comments The information contained in this document represents components of the legal health record. It is not the complete legal health record.[facility]
--- OUTSIDE RECORDS SUMMARY | 2025-08-16 12:54 | XMS_ITS | Encounter Summary ---
Author Organization [facility] Address [address] [place] [address] Phone Care Team Providers Care Brake Repairer Railroad Name Role Phone James Crowe MD Primary Care Provider Reason for Referral * MRI/CAT Scan - Closed Specialty Diagnoses / Procedures Referred By Etta long Referred To Contact Radiology Diagnoses Pain of left hip joint Procedures MRI Hip (Left) Brayden Bryan MD Phone: tel: fax: Referral ID Status Reason Start Date Expiration Date Visits Re quested Visits Authorized [id number] Closed 11/15/2018 11/15/2019 1 1 Encounter Details Date Type Department Care Team (Late st Contact Info) Description 12/05/2018 Ancillary Orders Virtual Department [address] [place] [address] Brayden Bryan MD [address] [place] [address] Pain of left hip joint Social History Tobacco Use Types Packs/Day Years [...] on file documented as of this encounter Results * MRI HIP WITHOUT CONTRAST (LEFT) (12/14/2018 8:35 AM EDT) Anatomical Region Laterality Modality Hip Left Magnetic Resonan ce 12/14/2018 11:0 5 AM EDT Impressions 12/14/2018 11:46 AM EDT Early cartilage loss over the femoral head without prominent osteoarthritic changes apparent. No marrow changes, findings of AVN or other new abnormality identified to account for the pain. POS [id number] Edited by: Abigail Singh on 12/14/2018 11:41 AM Narrative 12/14/2018 11:46 AM EDT HISTORY: Ongoing left hip pain. COMPARISON: MRI hip arthrogram 12/06/2017 TECHNIQUE: Exam performed on a 1.5 [place]ia high-field MRI scanner. Axial T2, oblique sagittal T1 and oblique sagittal T2, coronal T1 and coronal T2 fat-saturated sequences of the affected hip are obtained. A coronal T2 sequence of both hips is also obtained. FINDINGS: No evidence of AVN. There does appear to be cartilage thinning particularly over the apex of the left humeral head. No subchondral cystic change or evidence of prominent sclerosis or spurring, however. No significant joint effusion. Some progressive degenerative signal is seen in the labrum, particularly along portions anteriorly. No fluid extending into the labrum apparent. No bony lesions identified. Some minimal edema seen at the distal gluteal insertions at the greater trochanter as can be seen with gluteal tendinopathy. There is some disc desiccation and mild disc height loss at L4-5, unchanged. No abnormal signal seen in left SI joint. No adnexal masses aside from physiologic appearing cysts bilaterally. There is an IUD present in an anteverted uterus but the IUD appears to be low with the arms slightly more than 2 cm from the fundus. Procedure Note Abhi Cerrato MD - 12/14/2018 HISTORY: Ongoing left hip pain. COMPARISON: MRI hip arthrogram 12/06/2017 TECHNIQUE: Exam performed on a 1.5 [place]ia high-field MRI scanner. Axial T2,oblique sagittal T1 and oblique sagittal T2, coronal T1 and coronal [id number] sequences of the affected hip are obtained. A coronal [id number] of both hips is also obtained. FINDINGS: No evidence of AVN. There does appear to be cartilage thinningparticularly over the apex of the left humeral head. No subchondral cysticchange or evidence of prominent sclerosis or spurring, however. Nosignificant joint effusion. Some progressive degenerative signal is seenin the labrum, particularly along portions anteriorly. No fluid extendinginto the labrum apparent. No bony lesions identified. Some minimal edemaseen at the distal gluteal insertions at the greater trochanter as can beseen with gluteal tendinopathy. There is some disc desiccation and mild disc height loss at L4-5,unchanged. No abnormal signal seen in left SI joint. No adnexal masses aside from physiologic appearing cysts bilaterally.There is an IUD present in an anteverted uterus but the IUD appears to below with the arms slightly more than 2 cm from the fundus. IMPRESSION: Early cartilage loss over the femoral head without prominentosteoarthritic changes apparent. No marrow changes, findings of AVN orother new abnormality identified to account for the pain. POS [id number] Edited by: Abigail Singh on 12/14/2018 11:41 AM Brayden Bryan MD IMG MR EXTREMITY Final Re sult documented in this encounter Visit Diagnoses Diagnosis Pain of left hip joint Pain of left hip joint documented in this encounter Care Teams Brake Repairer Railroad Relationship Specialty Start Date End Date James Crowe MD [address] [place] [address] PCP - General Internal Medicine 07/25/17 documented as of this encounter Additional Source Comments The information contained in this document represents components of the legal health record. It is not the complete legal health record.[facility]
--- OUTSIDE RECORDS SUMMARY | 2025-08-16 12:54 | XMS_ITS | Encounter Summary ---
Author Organization [facility] Address [address] [facility] [address] [place] [address] Phone Care Team Providers Care Human Resources Psychologist Name Role Phone James Crowe MD Primary Care Provider Encounter Details Date Type Department Care Team (Late st Contact Info) Description 12/05/2018 Procedure Pass [facility], [address] [address] Social History Tobacco Use Types Packs/Day Years [...] on filedocumented in this encounter Care Teams Human Resources Psychologist Relationship Specialty Start Date End Date James Crowe MD [address] [place] [address] PCP - General Internal Medicine 07/25/17 documented as of this encounter Additional Source Comments The information contained in this document represents components of the legal health record. It is not the complete legal health record.[facility]
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
--- OUTSIDE RECORDS SUMMARY | 2025-08-16 12:54 | XMS_ITS | Encounter Summary ---
Author Organization [facility] Address [address] [place] [address] Phone Care Team Providers Care Healthcare Consulting Manager Name Role Phone James Crowe MD Primary Care Provider Encounter Details Date Type Department Care Team (Late st Contact Info) Description 10/17/2017 Ancillary Orders [address] [address] Kaylee Abdalla MD [address] [place] [address] Orthopedics [facility] Sports Medicine, [place] [address] [email or web address] Left hip pain Social History Tobacco Use Types Packs/Day Years Used Date Smoking Tobacco: Never Assessed Comments Unknown Sex and Gender Information Value Date Recorded Sex Assigned at Female 05/04/2022 11:51 AM EDT Legal Sex Female 10:30 PM EDT Gender Identity Female 05/04/2022 11:51 AM EDT Sexual Orientation Straight 05/04/2022 11 :51 AM EDT documented as of this encounter Plan of Treatment Pending Results Name Type Priority Associated Diagnoses Date /Time FL Guidance Needle Placement Non-Spine Imaging Routine Left hip pain 10/18/2017 1:03 PM EST Scheduled Orders Name Type Priority Associated Diagnoses Orde r Schedule FL Guidance Needle Placement Non-Spine Imaging Routine Left hip pain Expected: 10/17/2017, Expires: 10/17/2018 documented as of this encounter Visit Diagnoses Diagnosis Left hip pain Pain in joint, pelvic region and thigh documented in this encounter Care Teams Healthcare Consulting Manager Relationship Specialty Start Date End Date James Crowe MD [address] [address] PCP - General Internal Medicine 07/25/17 documented as of this encounter Additional Source Comments The information contained in this document represents components of the legal health record. It is not the complete legal health record.[facility]
--- OUTSIDE RECORDS SUMMARY | 2025-08-16 12:55 | XMS_ITS | Encounter Summary ---
Author Organization [facility] Address [address] [facility] [address] [place] [address] Phone Care Team Providers Care Merchandise Supervisor Name Role Phone James Crowe MD Primary Care Provider Encounter Details Date Type Department Care Team (Late st Contact Info) Description 05/06/[address] - [address], [address] [place] [id number] Social History Tobacco Use Types Packs/Day Years [...] on filedocumented in this encounter Care Teams Merchandise Supervisor Relationship Specialty Start Date End Date James Crowe MD [address] [facility] [address] [place] [address] PCP - General Internal Medicine 07/25/17 documented as of this encounter Additional Source Comments The information contained in this document represents components of the legal health record. It is not the complete legal health record.[facility]
--- OUTSIDE RECORDS SUMMARY | 2025-08-16 12:55 | XMS_ITS | Clinical Summary ---
Author Organization [facility] Address [address] [place] [address] Phone Care Team Providers Care Metallurgical Engineering Technician Name Role Phone James Baca Primary Care Provider [phone] James Baca Unavailable [phone] James Baca Unavailable [phone] Medications piroxicam (Feldene) 20 mg capsule Dose: 20 mg, Dose Amount: 1 cap, PO, daily, Dispense Quantity: 30 cap, Refills: 1, Entered: 05/13/21 8:34:00 EDT, [id number] 1 Active Social History Tobacco Use Types Packs/Day Years Used Date Smoking Tobacco: Never Assessed Comments Unknown Sex and Gender Information Value Date Recorded Sex Assigned at Female 01/04/2024 4:17 AM EDT Legal Sex Female 4:17 AM EDT Gender Identity Not on file Sexual Orientation Not on file Last Filed Vital Signs Vital Sign Reading Time Taken Comments Blood Pressure 112/76 06/03/2023 9:45 AM EDT Pulse 64 06/03/2023 9:45 AM EDT Temperature - - Respiratory Rate - - Oxygen Saturation - - Inhaled Oxygen Concentration - - Weight 69.7 kg (153 lb 10.6 oz) 10/07/2023 1:28 PM EST Height 168 cm (5' 6.14 ) 10/07/2023 1:28 PM EST Body Mass Index 24.7 10/07/2023 1:28 PM EST Plan of Treatment Not on file Care Teams Metallurgical Engineering Technician Relationship Specialty Start Date End Date James Baca [address] [place] [address] PCP - General 03/25/21 James Baca [address] [place] [address] PCP - Insurance PCP 08/10/23 James Baca [address] [place] [id number] PCP - Clinical PCP 03/25/21
== END 2025-08-16 13:25 | disposition home or self-care (01) ==
PROVIDERS: Visit Provider Physical Medicine & Rehabilitation
DX: M53.3 Sacrococcygeal disorders, not elsewhere classified (principal); M46.1 Sacroiliitis, not elsewhere classified
CPT/HCPCS: 27096

== ENCOUNTER 2025-09-11 08:45 | Outpatient (AMB) | payer OTHER, BC, SELFPAY ==
[2025-09-11 09:02] VITALS: BMI 26.3
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
--- OUTSIDE RECORDS SUMMARY | 2025-09-11 09:10 | XMS_ITS | Encounter Summary ---
Author Organization [facility] Address [address] [address] Phone Care Team Providers Care Backup Engineer Name Role Phone James Crowe MD Primary Care Provider Encounter Details Date Type Department Care Team (Late st Contact Info) Description 09/23/2017 Ancillary Orders [address] [address] Kaylee Abdalla MD [address] [place] [address] Orthopedics & Sports Medicine, [place] [address] [email or web address] Left hip pain Social History Tobacco Use [...] thigh documented in this encounter Care Teams Backup Engineer Relationship Specialty Start Date End Date James Crowe MD [address] [place] [address] [place] [address] PCP - General Internal Medicine 07/25/17 documented as of this encounter Additional Source Comments The information contained in this document represents components of the legal health record. It is not the complete legal health record.[facility]
--- OUTSIDE RECORDS SUMMARY | 2025-09-11 09:10 | XMS_ITS | Encounter Summary ---
Author Organization [facility] Address [address] [place] [address] Phone Care Team Providers Care Gas Distribution Supervisor Name Role Phone James Crowe MD Primary Care Provider Encounter Details Date Type Department Care Team (Late st Contact Info) Description 10/17/[address] [facility] [address] [place] [address] Kaylee Abdalla MD [address] [place] [address] Orthopedics & Sports Medicine, [place] [address] [email or web address] Social History Tobacco Use Types Packs/Day Years [...] on filedocumented in this encounter Care Teams Gas Distribution Supervisor Relationship Specialty Start Date End Date James Crowe MD [address] [place] [address] [place] [address] (work) PCP - General Internal Medicine 07/25/17 documented as of this encounter Additional Source Comments The information contained in this document represents components of the legal health record. It is not the complete legal health record.[facility]
--- OUTSIDE RECORDS SUMMARY | 2025-09-11 09:10 | XMS_ITS | Encounter Summary ---
Author Organization [facility] Address [address] [place] [address] Phone Care Team Providers Care Integration Consultant Name Role Phone James Crowe MD Primary Care Provider Encounter Details Date Type Department Care Team (Late st Contact Info) Description 10/17/2017 Ancillary Orders [address] [address] Kaylee Abdalla MD [address] [place] [address] Orthopedics & Sports Medicine, [place] [address] [email or web address] Left hip pain Social History Tobacco Use [...] thigh documented in this encounter Care Teams Integration Consultant Relationship Specialty Start Date End Date James Crowe MD [address] [address] PCP - General Internal Medicine 07/25/17 documented as of this encounter Additional Source Comments The information contained in this document represents components of the legal health record. It is not the complete legal health record.[facility]
--- OUTSIDE RECORDS SUMMARY | 2025-09-11 09:10 | XMS_ITS | Patient Health Record ---
Author Organization [facility] Address [address] [facility] [address] [place] [address] Care Team Providers Care Pairer Inspector Name Role Phone Unknown, Unknown Primary Care Provider Unavailab EDGAR Frazier Unavailable [phone] Allergies Allergen (clinical drug ingredient) Drug/Non Drug [...] - 1 tablet Orally daily Active Biotin 02619 MCG 1 tablet Orally Once a day [...] Notes Problem Obesity due to excess calories (196711111) Other obesity due to excess calories (E66.09) Active confirmed Problem Moderate recurrent major depression (98051230) Major depressive disorder, recurrent, moderate (F33.1) Active confirmed Problem Generalized anxiety disorder (47109335) Generalized anxiety disorder (F41.1) Active confirmed Problem Alopecia (91078725) Nonscarring hair loss, unspecified (L65.9) Active confirmed Problem Obstructive sleep apnea (59129081) Obstructive sleep apnea (G47.33) Active confirmed Vital Signs Heart Rate 94 /min 08/16/2025 Temperature 97.3 degrees Fahrenheit 08/16/2025 Blood pressure diastolic 70 mm Hg 08/16/2025 Oximetry 96 % 08/16/2025 Height 66.26 in 08/16/2025 Blood pressure systolic 110 mm Hg 08/16/2025 Weight 168.5 lbs 08/16/2025 BMI 26.98 kg/m2 08/16/2025 Encounters Encounter Location Date Provider Diagnosis [address] [place] [address] 12/20/2024 [facility]UL Other obesity due to excess calories E66.09 ; Dietary counseling and surveillance Z71.3 ; Obstructive sleep apnea G47.33 and Pain in left hip M25.[address] [place] [address] 04/11/2025 HERNÁNDEZ GUL Other obesity due to excess calories E66.09 ; Dietary counseling and surveillance Z71.3 and Obstructive sleep apnea G47.[address] [place] [address] 05/23/2025 HERNÁNDEZ GUL Other obesity due to excess calories E66.09 ; Dietary counseling and surveillance Z71.3 and Obstructive sleep apnea G47.[address] [place] [address] 06/20/2025 HERNÁNDEZ GUL Other obesity due to excess calories E66.09 ; Dietary counseling and surveillance Z71.3 and Obstructive sleep apnea G47.33 [facility] [address] [facility] [address] [place] [address] 07/18/2025 HERNÁNDEZ GUL Other obesity due to excess calories E66.09 ; Dietary counseling and surveillance Z71.3 and Obstructive sleep apnea G47.33 [facility] [address] [facility] [address] [facility] [place] [address] 08/16/2025 HERNÁNDEZ GUL Other obesity due to excess calories E66.09 and Dietary counseling and surveillance Z71.3 [facility] [address] [facility] [address] [facility] [place] [address] 12/20/2024 [facility] [address] [facility] [address] [facility] [address] 03/25/2025 [facility] [address] [facility] [address] [facility] [place] [address] 05/23/2025 [facility] [address] [facility] [address] [facility] [place] [address] 06/19/2025 [facility] [address] [facility] [address] [place] [address] 06/26/2025 [facility] [address] [facility] [address] [facility] [address] 07/18/2025 [facility] [address] [facility] [address] [place] [address] 12/08/2024 Unknown Unknown [facility] [address] [facility] [address] [facility] [place] [address] 12/16/2024 Unknown Unknown [facility] [address] [facility] [address] [place] [address] 12/17/2024 Unknown Unknown [facility] [address] [facility] [address] [place] [address] 01/01/2025 [facility] [address] [facility] [address] [facility] [place] [address] 01/08/2025 Unknown Unknown [facility] [address] [facility] [address] [place] [address] 01/08/2025 Unknown Unknown [facility] [address] [facility] [address] [place] [address] 01/09/2025 [facility] [address] [facility] [address] [place] [address] 01/15/2025 Unknown Unknown [facility] [address] [facility] [address] [place] [address] 01/18/2025 Unknown Unknown [facility] [address] [facility] [address] [place] [address] 01/18/2025 [facility] [address] [facility] [address] [place] [address] 03/18/2025 Unknown Unknown [facility] [address] [facility] [address] [place] [address] 04/01/2025 Unknown Unknown [facility] [address] [facility] [address] [facility] [facility] [address] 04/02/2025 Unknown Unknown [facility] [address] [facility] [address] [place] [address] 04/16/2025 [facility] [address] [facility] [address] [facility] [facility] [address] 05/11/2025 Unknown Unknown [facility] [address] [facility] [address] [place] [address] 05/20/2025 Unknown Unknown Assessments Encounter Date Diagnosis [...] Meal replacements were recommended. Advised to use rfzl-idy-afsjodg multivitamins and vitamin D. Advised to use [...] Meal replacements were recommended. Advised to use jsdd-exe-qivsrpk multivitamins and vitamin D. Advised to use [...] Meal replacements were recommended. Advised to use voki-vvu-ziibwak multivitamins and vitamin D. Advised to use [...] Meal replacements were recommended. Advised to use gumg-osy-ltcnjrf multivitamins and vitamin D. Advised to use [...] working long hours. She is approved for [employer] with a clause that she has to do dietary and lifestyle modifications were at least 3 months. We also discussed if she can afford to pay out of pocket from [employer]. She is currently on phentermine which is [...] Meal replacements were recommended. Advised to use djlb-jfx-lxykunp multivitamins and vitamin D. Advised to use [...] working long hours. She is approved for [employer] with a clause that she has to do dietary and lifestyle modifications were at least 3 months. We also discussed if she can afford to pay out of pocket from [employer]. She is currently on phentermine which is [...] Meal replacements were recommended. Advised to use msfs-doo-xrktbmk multivitamins and vitamin D. Advised to use [...] working long hours. She is approved for [employer] with a clause that she has to do dietary and lifestyle modifications were at least 3 months. We also discussed if she can afford to pay out of pocket from [employer]. She is currently on phentermine which is [...] Meal replacements were recommended. Advised to use wjcp-fju-gjzggls multivitamins and vitamin D. Advised to use [...] working long hours. She is approved for [employer] with a clause that she has to do dietary and lifestyle modifications were at least 3 months. We also discussed if she can afford to pay out of pocket from [employer]. She is currently on phentermine which is [...] Meal replacements were recommended. Advised to use lazs-tri-qvgvsyx multivitamins and vitamin D. Advised to use [...] Meal replacements were recommended. Advised to use lmxt-hzj-gzvvrnu multivitamins and vitamin D. Advised to use [...] Meal replacements were recommended. Advised to use btqb-umg-hvdyaib multivitamins and vitamin D. Advised to use [...] Meal replacements were recommended. Advised to use dhqz-ckc-cpkyhsi multivitamins and vitamin D. Advised to use [...] Meal replacements were recommended. Advised to use nptt-elu-wjnycrx multivitamins and vitamin D. Advised to use [...] Meal replacements were recommended. Advised to use byne-dhg-qgruufm multivitamins and vitamin D. Advised to use [...] working long hours. She is approved for [employer] with a clause that she has to do dietary and lifestyle modifications were at least 3 months. We also discussed if she can afford to pay out of pocket from [employer]. She is currently on phentermine which is [...] Meal replacements were recommended. Advised to use dnud-egz-nhjphad multivitamins and vitamin D. Advised to use [...] working long hours. She is approved for [employer] with a clause that she has to do dietary and lifestyle modifications were at least 3 months. We also discussed if she can afford to pay out of pocket from [employer]. She is currently on phentermine which is [...] Meal replacements were recommended. Advised to use ayag-opa-zdcsvhm multivitamins and vitamin D. Advised to use [...] Meal replacements were recommended. Advised to use sofh-onw-vjmpfan multivitamins and vitamin D. Advised to use [...] Obstructive sleep apnea (ICD-10 - G47.33) Mrs Ryees is a 43-year-old lady here today for [...] Meal replacements were recommended. Advised to use pcku-xqa-kzwepop multivitamins and vitamin D. Advised to use [...] Meal replacements were recommended. Advised to use qedu-pjb-hcgrviv multivitamins and vitamin D. Advised to use [...] Provider Name:EDGAR TORRES , 09/23/2025 10:45:00 AM, [address] [place] [address], [place], [address], Insurance Providers Payer Name Payer Address Payer Phone Subscriber Number Group Number Insured Name Patient Relationship to Insured Coverage Start Date Coverage End Date [facility] [address] [place] [address] [facility] [phone] [id number] Mindi Reyes Self - patient is the insured 3 [facility] [address] [place] [phone] [id number] Mindi Reyes Self - patient is the insured 3 Medical (General) History Medical History History ICD Code Major depression mild Class I obesity Surgical History Surgery Date(Month/Year) left hip surgery lumpectomy, right breast Hospitalization History Reason Date(Month/Year)
--- OUTSIDE RECORDS SUMMARY | 2025-09-11 09:10 | XMS_ITS | Encounter Summary ---
Author Organization [facility] Address [address] [facility] [address] [place] [address] Phone Care Team Providers Care Alarm Signal Operator Name Role Phone James Crowe MD Primary Care Provider Encounter Details Date Type Department Care Team (Late st Contact Info) Description 09/23/2017 Ancillary Orders [facility] [address] [place] [address] Kaylee Abdalla MD [address] [place] [address] Orthopedics & Sports Medicine, [place] [address] [email or web address] Social History Tobacco Use Types Packs/Day Years [...] on filedocumented in this encounter Care Teams Alarm Signal Operator Relationship Specialty Start Date End Date James Crowe MD [address] [place] [address] [place] [address] (work) PCP - General Internal Medicine 07/25/17 documented as of this encounter Additional Source Comments The information contained in this document represents components of the legal health record. It is not the complete legal health record.[facility]
--- OUTSIDE RECORDS SUMMARY | 2025-09-11 09:10 | XMS_ITS | Clinical Summary ---
Author Organization [facility] Address [address] [address] Phone Care Team Providers Care Bleaching Supervisor Name Role Phone James Crowe MD [...] Devices Not on file [facility] PPO EPO [facility] [employer] [facility] [employer] Member Subscriber Plan / Payer (Ef fective 2017-Present) Name:Michael Reyes Relation to Subscriber:Self Name:Michael Reyes Payer ID:Not on file Type:[facility] Address: [address] EPO [facility] PPO EPO [facility] PPO EPO [facility] PPO EPO [facility] PPO EPO [facility] PPO EPO [facility] [place] P[place] EPO [employer] [place] Care Teams Bleaching Supervisor Relationship Specialty Start Date End Date James Crowe MD [address] [place] [address] PCP - General Internal Medicine 07/25/17 Additional Source Comments The information contained in this document represents components of the legal health record. It is not the complete legal health record.[facility]
--- OUTSIDE RECORDS SUMMARY | 2025-09-11 09:11 | XMS_ITS | Encounter Summary ---
Author Organization [facility] Address [address] [place] [address] Phone Care Team Providers Care Supervisor Veneer Name Role Phone James Crowe MD Primary Care Provider Encounter Details Date Type Department Care Team (Late st Contact Info) Description 05/06/[address] - [address], [address] [place] [id number] Social History Tobacco Use Types Packs/Day Years [...] on filedocumented in this encounter Care Teams Supervisor Veneer Relationship Specialty Start Date End Date James Crowe MD [address] [facility] [address] [place] [address] PCP - General Internal Medicine 07/25/17 documented as of this encounter Additional Source Comments The information contained in this document represents components of the legal health record. It is not the complete legal health record.[facility]
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
--- OUTSIDE RECORDS SUMMARY | 2025-09-11 09:11 | XMS_ITS | Encounter Summary ---
Author Organization [facility] Address [address] [facility] [address] [place] [address] Phone Care Team Providers Care Shift Nurse Manager Name Role Phone James Crowe MD Primary Care Provider Encounter Details Date Type Department Care Team (Late st Contact Info) Description 12/05/2018 Procedure Pass [facility], [address] [address] Social History Tobacco Use Types Packs/Day Years [...] on filedocumented in this encounter Care Teams Shift Nurse Manager Relationship Specialty Start Date End Date James Crowe MD [address] [place] [address] PCP - General Internal Medicine 07/25/17 documented as of this encounter Additional Source Comments The information contained in this document represents components of the legal health record. It is not the complete legal health record.[facility]
--- OUTSIDE RECORDS SUMMARY | 2025-09-11 09:11 | XMS_ITS | Encounter Summary ---
Author Organization [facility] Address [address] [place] [address] Phone Care Team Providers Care Visual Merchandising Specialist Name Role Phone James Crowe MD Primary Care Provider Reason for Referral * MRI/CAT Scan - Closed Specialty Diagnoses / Procedures Referred By Etta long Referred To Contact Radiology Diagnoses Pain of left hip joint Procedures MRI Hip (Left) Brayden Bryan MD Phone: tel: fax: Referral ID Status Reason Start Date Expiration Date Visits Re quested Visits Authorized [id number] Closed 11/15/2018 11/15/2019 1 1 Encounter Details Date Type Department Care Team (Late st Contact Info) Description 12/05/2018 Ancillary Orders Virtual Department [address] [place] [address] Brayden Bryan MD [address] [place] [address] Pain of left hip joint Social History [...] identified to account for the pain. POS [id number] Edited by: Abigail Singh on 12/14/2018 11:41 [...] oblique sagittal T2, coronal T1 and coronal [id number] sequences of the affected hip are obtained. A coronal [id number] of both hips is also obtained. FINDINGS: [...] identified to account for the pain. POS [id number] Edited by: Abigail Singh on 12/14/2018 11:41 AM Brayden Bryan MD IMG MR EXTREMITY Final Re sult documented in this encounter Visit Diagnoses Diagnosis Pain of left hip joint Pain of left hip joint documented in this encounter Care Teams Visual Merchandising Specialist Relationship Specialty Start Date End Date James Crowe MD [address] [place] [address] PCP - General Internal Medicine 07/25/17 documented as of this encounter Additional Source Comments The information contained in this document represents components of the legal health record. It is not the complete legal health record.[facility]
--- OUTSIDE RECORDS SUMMARY | 2025-09-11 09:11 | XMS_ITS | Encounter Summary ---
Author Organization [facility] Address [address] [facility] [address] [place] [address] Phone Care Team Providers Care Utility Supervisor Boat [employer] Name Role Phone James Crowe MD Primary Care Provider Encounter Details Date Type Department Care Team (Late st Contact Info) Description 11/11/2017 Procedure Pass [facility], [address] [address] Social History Tobacco Use Types Packs/Day Years [...] on filedocumented in this encounter Care Teams Utility Supervisor Boat [employer] Relationship Specialty Start Date End Date James Crowe MD [address] [place] [address] PCP - General Internal Medicine 07/25/17 documented as of this encounter Additional Source Comments The information contained in this document represents components of the legal health record. It is not the complete legal health record.[facility]
--- OUTSIDE RECORDS SUMMARY | 2025-09-11 09:11 | XMS_ITS | Clinical Summary ---
Author Organization [facility] Address [address] [place] [address] Phone Care Team Providers Care Business Process Representative Name Role Phone James Baca Primary Care Provider [phone] James Baca Unavailable [phone] James Baca Unavailable [phone] Medications piroxicam (Feldene) 20 mg capsule Dose: 20 mg, Dose Amount: 1 cap, PO, daily, Dispense Quantity: 30 cap, Refills: 1, Entered: 05/13/21 8:34:00 EDT, [id number] 1 Active Social History Tobacco Use Types [...] of Treatment Not on file Care Teams Business Process Representative Relationship Specialty Start Date End Date James aBca [address] [place] [address] PCP - General 03/25/21 James Baca [address] [place] [address] PCP - Insurance PCP 08/10/23 James Baca [address] [place] [address] PCP - Clinical PCP 03/25/21
== END 2025-09-11 09:13 | disposition home or self-care (01) ==
LOC: HO.HPHYS 08:46
PROVIDERS: Visit Provider Physical Medicine & Rehabilitation
DX: M53.3 Sacrococcygeal disorders, not elsewhere classified (principal); M46.1 Sacroiliitis, not elsewhere classified; M54.12 Radiculopathy, cervical region; M54.2 Cervicalgia; V89.2XXD Person injured in unspecified motor-vehicle accident, traffic, subsequent encounter
CPT/HCPCS: 99214; G2211